=== PATIENT | female | born 1950 | race Caucasian/White ===

== ENCOUNTER → 2017-08-18 | Outpatient (CLI) | payer OTHER ==
[~2017-08-18] MED LIST: FLNIN NAE
--- NOTE | 2017-08-19 09:32 | MAMMOGRAPHY REPORT ---
BILATERAL DIGITAL SCREENING MAMMOGRAM TOMOSYNTHESIS WITH CAD: 08/18/2017 CLINICAL HISTORY: Routine screening. Patient has no complaints. TECHNIQUE: Breast tomosynthesis in addition to standard 2D mammography was performed. Current study was also evaluated with a Computer Aided Detection (CAD) system. COMPARISON: No prior exams were available for comparison. BREAST COMPOSITION: There are scattered areas of fibroglandular density in both breasts. FINDINGS: No suspicious mass, architectural distortion or cluster of microcalcifications is seen. IMPRESSION: ACR BI-RADS CATEGORY 1: NEGATIVE There is no mammographic evidence of malignancy. However, prior outside mammograms are currently gabriela ng requested and if obtained they will be reviewed, compared to the current exam to assess for any mo re subtle changes, and an addendum will be made to this report. Otherwise, a 1 year screening mammog yissel is recommended. The patient will receive written notification of the results. Approximately 10% of breast cancers are not detected with mammography. A negative mammographic report should not delay biopsy if a clinically suggestive mass is present. Sol Caraballo M.D. ay/:08/18/2017 14:01:38 Lamination Inspector: Brittaney BARRY)([place]), [facility] letter sent: Normal 1/2 BI-RADS Code: ACR BI-RADS Category 1: Negative
== END | disposition home or self-care (01) ==
LOC: C.MAMM 11:30
PROVIDERS: ATTEND Family Medicine
DX: Z12.31 Encounter for screening mammogram for malignant neoplasm of breast (principal)

== ENCOUNTER → 2017-10-08 | Outpatient (CLI) | payer OTHER ==
--- NOTE | 2017-10-08 16:55 | EXERCISE STRESS ECHO ---
*NOTICE TO RECEIVING [employer] This information is strictly Confidential and protected under [place] law. [place] law prohibits you from making any further disclosure of this information unless further disclosure is expressly permitted by the written consent of the person to whom it pertains or is authorized by law. A general authorization for the release of medical or other information is not sufficient for this purpose. Hospital accepts no responsibility if the information is made available to any other person, INCLUDING THE PATIENT. Interpretation Summary * Name: GILMA POPE Study Date: 10/08/2017 10:02 AM BP: 104/77 mmHg * Patient Location: [facility] HR: 53 * : 1950 (M/d/yyyy) Gender: Female Height: 67 in * Age: 67 yrs Ethnicity: [place] Weight: 150 lb * Ordering Physician: Amna Steiner * Referring Physician: Amna Steiner D.O. * Performed By: Kymberly Mcknight RDCS * * Reason For Study: CHEST PAIN * BSA: 1.8 m2 * The ST segment changes with exercise are not diagnostic of ischemia. * Resting echocardiogram with normal biventricular systolic function. No significant valve abnormalities. Normal chamber dimensions. * This was a normal stress echocardiogram. * The left ventricular ejection fraction increases normally with stress. The left ventricular end-systolic cavity size reduces post-stress (normal response). The left ventricular wall motion with stress is normal. * RESTING STUDY: Normal left ventricular cavity size, myocardial thickness, wall motion, and systolic function. * There is no inducible ischemia noted at peak stress. * -- Conclusions -- * No segmental left ventricular wall motion abnormalities are noted. Procedure Details * ECHOEX, CPT #[id number] Left Ventricle * The left ventricle is normal in size. * There is normal left ventricular wall thickness. * Ejection Fraction = 60-65%. * Left ventricular systolic function is normal. * No segmental left ventricular wall motion abnormalities are noted. * Resting wall motion: Normal. Stress wall motion: Appropriate increase in Left ventricular systolic function and decrease in cavity size. No stress induced segmental wall motion abnormalities. * The left ventricular ejection fraction increases normally with stress. The left ventricular end-systolic cavity size reduces post-stress (normal response). The left ventricular wall motion with stress is normal. Right Ventricle * The right ventricle is normal in size and function. * The right ventricular systolic function is normal as assessed by tricuspid annular plane systolic excursion (TAPSE) (normal >1.5 cm). Atria * The left atrial size is normal. * Right atrial size is normal. * No ASD detected; PFO is not assessed. Mitral Valve * The mitral valve is normal. * There is no mitral valve stenosis. * There is no mitral regurgitation noted. Tricuspid Valve * The tricuspid valve is normal. * There is no tricuspid stenosis. * There is trace tricuspid regurgitation. * Right ventricular systolic pressure is normal. Aortic Valve * The aortic valve is trileaflet. * The aortic valve opens well. * Aortic stenosis is absent. * No aortic regurgitation is present. Pulmonic Valve * The pulmonic valve is not well seen, but is grossly normal. * Pulmonic stenosis is absent. * Trace pulmonic valvular regurgitation. Great Vessels * The aortic root is normal size. * Normal appearance of the inferior vena cava. Normal collapsibility of the inferior vena cava with respiration. Pericardium * There is no pericardial effusion. Stress Parameters * Sinus bradycardia, small biphasic T-waves leads 3 and V2, flat T-waves in leads 2, AVF, V3-V6. * 0.2-0.[address] depressions in the inferior leads, 0.[address] depression lead V6. Rare premature supraventricular beats at rest and in recovery. * Rest heart rate was '53' BPM. * Rest blood pressure was '104/77' * Maximum heart rate achieved was 137 bpm. * Maximum heart rate was 88 % of maximum age-predicted heart rate. * Maximum blood pressure was '163/72' * Total exercise time was '9:17' * Maximum exercise MET level achieved was '10.50' METS * Maximum treadmill speed was '4.2' miles per hour. * Maximum treadmill elevation was '16'% grade. * Exercise was terminated due to 'fatigue' * Normal blood pressure response to exercise. * No chest pain during or following exercise. MMode 2D Measurements and Calculations IVSd 0.99 cm IVSs 1.4 cm LVIDd 4.0 cm LVIDs 2.7 cm LVPWd 1.1 cm LVPWs 1.5 cm IVS/LVPW 0.91 FS 33.2 % EDV(Teich) 71.1 ml ESV(Teich) 26.8 ml EF(Teich) 62.3 % EDV(cubed) 65.2 ml ESV(cubed) 19.5 ml EF(cubed) 70.1 % % IVS thick 41.2 % % LVPW thick 40.6 % LV mass(C)d 136.2 grams LV mass(C)dI 76.1 grams/m\S\2 LV mass(C)s 132.8 grams LV mass(C)sI 74.2 grams/m\S\2 SV(Teich) 44.3 ml SI(Teich) 24.7 ml/m\S\2 SV(cubed) 45.8 ml SI(cubed) 25.6 ml/m\S\2 Ao root diam 2.8 cm Ao root area 6.0 cm\S\2 LA dimension 3.2 cm LA/Ao 1.2 LVAd ap4 27.9 cm\S\2 LVLd ap4 7.9 cm EDV(MOD-sp4) 81.7 ml EDV(sp4-el) 83.7 ml LVAs ap4 15.3 cm\S\2 LVLs ap4 6.0 cm ESV(MOD-sp4) 34.9 ml ESV(sp4-el) 33.1 ml EF(MOD-sp4) 57.3 % EF(sp4-el) 60.4 % LVAd ap2 25.2 cm\S\2 LVLd ap2 7.2 cm EDV(MOD-sp2) 75.0 ml EDV(sp2-el) 75.1 ml LVAs ap2 13.8 cm\S\2 LVLs ap2 6.0 cm ESV(MOD-sp2) 27.4 ml ESV(sp2-el) 26.8 ml EF(MOD-sp2) 63.5 % EF(sp2-el) 64.3 % LVLd %diff -9.86 % EDV(MOD-bp) 80.3 ml LVLs %diff 0.67 % ESV(MOD-bp) 30.7 ml EF(MOD-bp) 61.8 % SV(MOD-sp4) 46.8 ml SI(MOD-sp4) 26.2 ml/m\S\2 SV(MOD-sp2) 47.6 ml SI(MOD-sp2) 26.6 ml/m\S\2 SV(MOD-bp) 49.6 ml SI(MOD-bp) 27.7 ml/m\S\2 SV(sp4-el) 50.6 ml SI(sp4-el) 28.3 ml/m\S\2 SV(sp2-el) 48.3 ml SI(sp2-el) 27.0 ml/m\S\2 Doppler Measurements and Calculations Ao V2 max 110.9 cm/sec Ao max PG 4.9 mmHg Ao max PG (full) 3.1 mmHg LV V1 max PG 1.8 mmHg LV V1 max 67.9 cm/sec TR max celeste 176.5 cm/sec
--- NOTE | 2017-10-10 16:31 | Holter Monitor ---
Holter Monitor Report Holter Monitor Report Date of Service: 10/08/2017 Holter Monitor Report Indication: Abnormal EKG, dizziness, weakness Patient was monitored for. 23 hours and 30 minutes The average heart rate during the monitoring period was 69 beats per minute with a minimum of 47 and maximum 113 The rhythm during the entire monitoring period was sinus with very rare atrial and ventricular ectopy There were no sustained atrial or ventricular arrhythmias There were no periods of significant heart block, bradycardia or pauses There was no atrial fibrillation No symptoms reported during the monitoring. Impression: Normal Holter monitor without arrhythmia or symptoms
== END | disposition home or self-care (01) ==
LOC: C.CPL 09:36
PROVIDERS: ATTEND Family Medicine
DX: R94.31 Abnormal electrocardiogram [ECG] [EKG] (principal); R42 Dizziness and giddiness